=== PATIENT | male | born 1975 | race Caucasian/White ===

== ENCOUNTER 2024-04-10 01:57 | Emergency (ER) | payer OTHER ==
[2024-04-10] MEDS: Lactated Ringers 1,000 ML IV ONE (02:15)
[2024-04-10 02:48] LABS: BASOPHILS PERCENT AUTO 0.3 % (0.0-1.0); EOSINOPHILS PERCENT AUTO 0.8 % (1.0-3.0); HEMATOCRIT 40.9 % (40.0-54.0); HEMOGLOBIN 13.9 g/dL (14.0-18.0); LYMPHOCYTES PERCENT AUTO 6.2 % (20.5-50.1); MEAN CORPUSCULAR HEMOGLOBIN 27.9 pg (27.0-34.0); MONOCYTES PERCENT AUTO 5.7 % (2-8); PLATELET COUNT,PLT 197 10^3/uL (150-450); RED BLOOD CELL COUNT 4.99 10^6/uL (4.6-6.2); WHITE BLOOD CELL COUNT,WBC 11.8 10^3/uL (5.0-10.0)
[2024-04-10] MEDS: Ketorolac 30 MG/ML SDV IVPUSH ONE (02:50)
[2024-04-10] MEDS: Metoclopramide 10 MG/2 ML SDV IVPUSH ONE (02:52)
[2024-04-10 03:07] LABS: ALBUMIN 2.9 g/dL (3.4-5.0); ANION GAP 10.4 mEq/L (7-13); BUN/CREATININE RATIO 22.4 (No establ ref range); CALCIUM 8.6 mg/dL (8.5-10.1); CREATININE 0.98 mg/dL (0.70-1.30); EST CRCL DRUG DOSING (CG) 123.5 mL/min; POTASSIUM,K 4.4 mmol/L (3.5-5.1); PROTEIN TOTAL,TP 6.3 g/dL (6.4-8.2)
[2024-04-10 03:08] LABS: A/G RATIO 0.85
== END 2024-04-10 03:52 | disposition home or self-care (01) ==
LOC: DL.ED 01:57
DX: E86.0 Dehydration (principal); R10.9 Unspecified abdominal pain; R51.9 Headache, unspecified; Z87.891 Personal history of nicotine dependence; Z88.8 Allergy status to other drugs, medicaments and biological substances
CPT/HCPCS: 36415; 80053; 85025; 96361; 96374; 96375; 99283; 99284; J1885; J2765; J7120